=== PATIENT | male | born 1990 | race Two or more races ===

== ENCOUNTER 2021-12-04 14:05 | Emergency (ER) | payer OTHER ==
[~2021-12-04] VITALS: Ht 185.4 cm; Wt 159.7 kg
[2021-12-04 14:42] VITALS: BP 139/97
[2021-12-04 14:52] LABS: Basophils # (auto) 0.1 10 ^3/uL (0-0.2); Basophils % (auto) 0.7 % (0.0-2.0); Eosinophils # (auto) 0.1 10 ^3/uL (0-0.8); Eosinophils % (auto) 1.2 % (0.0-7.0); Hematocrit 48.8 % (41.0-53.0); Hemoglobin 16.4 g/dL (13.5-17.5); Lymphocytes # (auto) 2.7 10 ^3/uL (0.4-5.4); Lymphocytes % (auto) 32.4 % (10.0-50.0); Mean Corpuscular Hemoglobin 27.6 pg (28.0-32.0); Mean Corpuscular Hgb Conc. 33.7 g/dL (32.0-36.0); Mean Corpuscular Volume 81.9 fL (80.0-100.0); Monocytes # (auto) 0.6 10 ^3/uL (0-1.3); Neutrophils # (auto) 4.9 10 ^3/uL (1.6-8.6); Neutrophils % (auto) 58.7 % (37.0-80.0); Nucleated Red Blood Cells % 0.3 %; Red Blood Cells 5.95 10^6/uL (4.5-5.90); Red Cell Distribution Width 13.7 % (11.8-14.3); White Blood Cell 8.4 10^3/uL (4.4-10.8)
[2021-12-04 15:07] LABS: Albumin 3.8 g/dL (3.4-5.0); BUN/Creatinine Ratio 14.5; Calcium 8.5 mg/dL (8.5-10.1); Potassium 3.9 mmol/L (3.5-5.1)
[2021-12-04] MEDS ORDERED: KETOROLAC TROMETH 60MG/2ML VIAL IM ONE (15:15)
[2021-12-04 15:26] LABS: Bilirubin, Total 0.9 mg/dL (0.2-1.0); Total Protein 7.7 g/dL (6.4-8.2)
[2021-12-04 15:33] LABS: Urine Bacteria NONE SEEN /hpf (None Seen); Urine Blood Negative /uL (Negative); Urine Mucus FEW (None Seen); Urine Specific Gravity 1.024 (1.001-1.035); Urine WBC 1 /hpf (0 - 3)
[2021-12-04] MEDS ORDERED: IBUP800T27 PO (15:54)
[2021-12-04] MEDS ORDERED: BACL10TA PO (15:54)
== END 2021-12-04 16:08 | disposition home or self-care (01) ==
LOC: ER 14:05
DX: S39.011A Strain of muscle, fascia and tendon of abdomen, initial encounter (principal); X50.0XXA Overexertion from strenuous movement or load, initial encounter; Y93.89 Activity, other specified; Y92.89 Other specified places as the place of occurrence of the external cause; Y99.8 Other external cause status
CPT/HCPCS: 36415; 74176; 80053; 81001; 83690; 85025; 96372; 99284; J1885

== ENCOUNTER 2023-02-06 04:11 | Emergency (ER) | payer MEDICAID, OTHER ==
[~2023-02-06] VITALS: Ht 185.4 cm; Wt 153.3 kg
[~2023-02-06 04:11] MED LIST: BACL10TA PO; IBUP-1456 PO
[2023-02-06 06:22] VITALS: TEMP 97.4; O2SAT 100
[2023-02-06] MEDS ORDERED: HYDROmorphone HCL 2 MG/ML VL/or syr IM ONE (06:30)
[2023-02-06] MEDS ORDERED: ONDANSETRON ODT 4 MG TAB PO ONE (06:30)
[2023-02-06 07:19] VITALS: BP 107/71; PULSE 79; RESP 18
== END 2023-02-06 08:21 | disposition home or self-care (01) ==
LOC: ER 04:11
DX: M23.92 Unspecified internal derangement of left knee (principal); Z79.1 Long term (current) use of non-steroidal anti-inflammatories (NSAID); Z79.899 Other long term (current) drug therapy
CPT/HCPCS: 73562; 96372; 99283; J1170; Q0162

== ENCOUNTER 2024-01-04 16:50 | Inpatient (IN) | payer MEDICAID, OTHER ==
[~2024-01-04] VITALS: Ht 185.4 cm; Wt 139.2 kg
[2024-01-04 18:55] LABS: Urine Amorphous Crystal FEW /hpf (None Seen); Urine Bacteria FEW /hpf (None Seen); Urine Blood Negative /uL (Negative); Urine Clarity Turbid (Clear); Urine Color Yellow (Yellow); Urine Mucus FEW (None Seen); Urine Protein, UAD TRACE (Negative); Urine Specific Gravity 1.024 (1.001-1.035); Urine Urobilinogen 12 mg/dL (Negative); Urine WBC 5 /hpf (0 - 3)
[2024-01-04 19:08] LABS: Basophils # (auto) 0 10 ^3/uL (0-0.2); Basophils % (auto) 0.3 % (0.0-2.0); Eosinophils # (auto) 0 10 ^3/uL (0-0.8); Eosinophils % (auto) 0.2 % (0.0-7.0); Hematocrit 47.4 % (41.0-53.0); Lymphocytes # (auto) 1.5 10 ^3/uL (0.4-5.4); Lymphocytes % (auto) 13.7 % (10.0-50.0); Mean Corpuscular Hemoglobin 28.7 pg (28.0-32.0); Mean Corpuscular Hgb Conc. 33.7 g/dL (32.0-36.0); Mean Corpuscular Volume 85.3 fL (80.0-100.0); Monocytes # (auto) 0.8 10 ^3/uL (0-1.3); Neutrophils # (auto) 8.7 10 ^3/uL (1.6-8.6); Neutrophils % (auto) 78.8 % (37.0-80.0); Nucleated Red Blood Cells % 0.2 %; Red Blood Cells 5.56 10^6/uL (4.5-5.90); Red Cell Distribution Width 13.8 % (11.8-14.3); White Blood Cell 11.1 10^3/uL (4.4-10.8)
[2024-01-04 19:21] LABS: Alanine Aminotransferase 137 U/L (7-40); Albumin 4.3 g/dL (3.2-4.8); Alkaline Phosphatase 129 U/L (46-116); Anion Gap 5 (5-15); Aspartate Aminotransferase 160 U/L (13-40); BUN/Creatinine Ratio 16.1 (10.0-20.0); Bilirubin, Total 1.6 mg/dL (0.2-1.0); Blood Urea Nitrogen 15 mg/dL (9-23); Calcium 9.4 mg/dL (8.7-10.4); Carbon Dioxide 26 mmol/L (20-30); Chloride 108 mmol/L (98-107); Glucose 105 mg/dL (74-106); Lipase 46 U/L (12-53); Potassium 4.3 mmol/L (3.5-5.1); Sodium 139 mmol/L (136-145); Total Protein 7.4 g/dL (5.7-8.2)
[2024-01-04] MEDS: CIPROFLOXACIN HCL 500 MG TAB PO ONE (20:38)
[2024-01-04] MEDS: PANTOPRAZOLE 40 MG/10 ML VIAL INJ IV ONE (20:55)
[2024-01-04] MEDS: ONDANSETRON HCL 4 MG/2 ML VIAL IV ONE (20:56)
[2024-01-04] MEDS: PIPERACILLIN-TAZOB 3.375GM 100 ML IV ONE (22:05)
[2024-01-04] MEDS ORDERED: ONDANSETRON HCL 4 MG/2 ML VIAL IV PRN (22:15)
[2024-01-04] MEDS: SODIUM CHLORIDE 0.9% 1,000 ML IV SCH (22:33)
[2024-01-04 23:08] LABS: Triglycerides 67 mg/dL (< 150)
[2024-01-04 23:09] LABS: LDL Cholesterol 83 mg/dL (< 100)
[2024-01-04 23:10] LABS: Cholesterol 138 mg/dL (< 200); HDL Cholesterol 43 mg/dL (40-59)
[2024-01-05] VITALS (9 sets, daily range): BP systolic 104–125; BP diastolic 57–75; PULSE 43–59; RESP 16–21; TEMP 97.4–98.3; O2SAT 94–99
[2024-01-05] MEDS: metroNIDAZOLE 500MG/100ML 100 ML IV SCH (05:52)
[2024-01-05] MEDS ORDERED: ACET500T58 PO (06:14)
[2024-01-05] MEDS ORDERED: HYDR-3682 PO (06:14)
[2024-01-05 06:44] LABS: Basophils # (auto) 0 10 ^3/uL (0-0.2); Basophils % (auto) 0.5 % (0.0-2.0); Eosinophils # (auto) 0.1 10 ^3/uL (0-0.8); Eosinophils % (auto) 1.5 % (0.0-7.0); Hematocrit 45.5 % (41.0-53.0); Hemoglobin 15.2 g/dL (13.5-17.5); Lymphocytes # (auto) 3.2 10 ^3/uL (0.4-5.4); Lymphocytes % (auto) 37.1 % (10.0-50.0); Mean Corpuscular Hemoglobin 28.8 pg (28.0-32.0); Mean Corpuscular Hgb Conc. 33.3 g/dL (32.0-36.0); Mean Corpuscular Volume 86.4 fL (80.0-100.0); Monocytes # (auto) 0.8 10 ^3/uL (0-1.3); Monocytes % (auto) 9.3 % (0.0-12.0); Neutrophils # (auto) 4.4 10 ^3/uL (1.6-8.6); Neutrophils % (auto) 51.6 % (37.0-80.0); Red Blood Cells 5.27 10^6/uL (4.5-5.90); Red Cell Distribution Width 13.8 % (11.8-14.3); White Blood Cell 8.5 10^3/uL (4.4-10.8)
[2024-01-05 06:53] LABS: Alanine Aminotransferase 212 U/L (7-40); Albumin 3.9 g/dL (3.2-4.8); Alkaline Phosphatase 133 U/L (46-116); Anion Gap 6 (5-15); Bilirubin, Total 1.4 mg/dL (0.2-1.0); Blood Urea Nitrogen 16 mg/dL (9-23); Carbon Dioxide 24 mmol/L (20-30); Chloride 109 mmol/L (98-107); Glucose 99 mg/dL (74-106); Potassium 3.8 mmol/L (3.5-5.1); Sodium 139 mmol/L (136-145); Total Protein 6.5 g/dL (5.7-8.2)
[2024-01-05 07:10] LABS: Aspartate Aminotransferase 172 U/L (13-40)
[2024-01-05] MEDS: PANTOPRAZOLE 40 MG/10 ML VIAL INJ IV SCH (10:17)
[2024-01-05] MEDS: cefTRIAXone 1GM/50ML D5W 50 ML IV SCH (10:24)
[2024-01-05] MEDS: MORPHINE SULFATE INJ 2 MG/ml SYRG IV PRN (22:49)
[2024-01-06] VITALS (7 sets, daily range): BP systolic 101–128; BP diastolic 57–72; PULSE 55–63; RESP 18; TEMP 36.7; O2SAT 94–99
[2024-01-06 06:07] LABS: PSA Free 0.43 ng/mL; Prostate Specific Antigen 1.3 ng/mL (0.0-4.0)
[2024-01-08 09:58] LABS: Hepatitis B Core Total AB Negative (Negative)
[2024-01-08 11:49] LABS: Hepatitis A Total Antibody Negative (Negative); Hepatitis B Surface Antibody Negative (Negative); Hepatitis B Surface Antigen Negative (Negative); Hepatitis C Antibody Negative (Negative)
== END 2024-01-06 16:00 | disposition home or self-care (01) ==
LOC: ER 16:50 → EDBD 16:50 → OVERFLOW 22:11 → WEST WING 22:11
PROVIDERS: ADMIT Registered Nurse; ATTEND Internal Medicine
DX: K80.10 Calculus of gallbladder with chronic cholecystitis without obstruction (principal); K92.2 Gastrointestinal hemorrhage, unspecified; R16.2 Hepatomegaly with splenomegaly, not elsewhere classified; E80.6 Other disorders of bilirubin metabolism; I10 Essential (primary) hypertension; N40.0 Benign prostatic hyperplasia without lower urinary tract symptoms; R74.01 Elevation of levels of liver transaminase levels; E66.01 Morbid (severe) obesity due to excess calories; F41.9 Anxiety disorder, unspecified; F17.200 Nicotine dependence, unspecified, uncomplicated; Z68.41 Body mass index [BMI] 40.0-44.9, adult; Z79.899 Other long term (current) drug therapy
CPT/HCPCS: 36415; 74176; 76705; 78226; 80053; 80061; 81001; 82270; 83036; 83605; 83690; 84154; 84443; 84484; 85025; 85048; 86704; 86706; 86708; 86803; 87040; 87340; 93005; C9113; G0378; J2405; J2543; J3490